=== PATIENT | female | born 1990 | race Two or more races ===

== ENCOUNTER → 2019-05-31 | Outpatient (CLI) | payer OTHER | END | disposition home or self-care (01) | LOC: NUCLEAR 05-15 07:00 → EDBD 08:26 → NUCLEAR 08:26 | DX: E05.90 Thyrotoxicosis, unspecified without thyrotoxic crisis or storm (principal) | CPT/HCPCS: 78012; A9531 ==

== ENCOUNTER 2019-06-01 08:57 | Outpatient (CLI) | payer OTHER | END 2019-06-01 09:00 | disposition home or self-care (01) | LOC: NUCLEAR 08:57 | DX: E05.90 Thyrotoxicosis, unspecified without thyrotoxic crisis or storm (principal) | CPT/HCPCS: 78013; A9512 ==

== ENCOUNTER 2021-04-08 13:30 | Outpatient (CLI) | payer OTHER | END 2021-04-08 15:07 | disposition home or self-care (01) | LOC: PRENATAL 13:30 | PROVIDERS: ATTEND Obstetrics & Gynecology Maternal & Fetal Medicine | DX: Z36.89 Encounter for other specified antenatal screening (principal); O36.80X1 Pregnancy with inconclusive fetal viability, fetus 1; O99.891 Other specified diseases and conditions complicating pregnancy; Z3A.15 15 weeks gestation of pregnancy ==

== ENCOUNTER 2021-05-22 15:08 | Outpatient (CLI) | payer OTHER | END 2021-05-22 16:27 | disposition home or self-care (01) | LOC: PRENATAL 15:08 | PROVIDERS: ATTEND Obstetrics & Gynecology Maternal & Fetal Medicine | DX: O35.0XX1 Maternal care for (suspected) central nervous system malformation in fetus, fetus 1 (principal); O35.3XX1 Maternal care for (suspected) damage to fetus from viral disease in mother, fetus 1; O98.512 Other viral diseases complicating pregnancy, second trimester; O99.891 Other specified diseases and conditions complicating pregnancy; Z36.89 Encounter for other specified antenatal screening; Z3A.21 21 weeks gestation of pregnancy ==

== ENCOUNTER 2021-08-13 15:07 | Outpatient (CLI) | payer OTHER | END 2021-08-13 16:10 | disposition home or self-care (01) | LOC: PRENATAL 15:07 | PROVIDERS: ATTEND Obstetrics & Gynecology Maternal & Fetal Medicine | DX: O26.849 Uterine size-date discrepancy, unspecified trimester (principal); O35.0XX0 Maternal care for (suspected) central nervous system malformation in fetus, not applicable or unspecified ==

== ENCOUNTER 2021-09-18 06:39 | Inpatient (IN) | payer OTHER ==
[~2021-09-18] VITALS: Ht 165.1 cm; Wt 71.7 kg
[2021-09-18] MEDS ORDERED: PRENATAL TABLE1 EAC3 PO (08:46)
[2021-09-18] MEDS ORDERED: SYNTHROID150 MCG PO (08:46)
[2021-09-18] MEDS ORDERED: DOCUSATE SODIU100 MG (09:31)
[2021-09-20] MEDS ORDERED: IBUPROFEN400 MG PO (08:35)
[2021-09-20] MEDS ORDERED: COLACE100 MG PO (08:36)
== END 2021-09-20 12:32 | disposition home or self-care (01) | DRG 768 ==
LOC: LDR 06:39 → OB/GYN 06:39
PROVIDERS: ADMIT Obstetrics & Gynecology; ATTEND Obstetrics & Gynecology
PROC: 10E0XZZ Delivery of Products of Conception, External Approach (ICD-10-PCS; principal; 2021-09-18)
PROC: 0DQR0ZZ Repair Anal Sphincter, Open Approach (ICD-10-PCS; 2021-09-18)
PROC: 4A1HXCZ Monitoring of Products of Conception, Cardiac Rate, External Approach (ICD-10-PCS; 2021-09-18)
DX: O70.21 Third degree perineal laceration during delivery, IIIa (principal); Z37.0 Single live birth; Z3A.37 37 weeks gestation of pregnancy; Z20.822 Contact with and (suspected) exposure to COVID-19